=== PATIENT | female | born 1990 | race Caucasian/White ===

== ENCOUNTER 2022-01-13 21:43 | Emergency (ER) | payer SELFPAY ==
[~2022-01-13 21:43] MED LIST: DEPAKOTE250 MG PO; LAMICTAL100 MG PO
== END 2022-01-13 22:10 | disposition left against medical advice (07) | DRG 951 ==
LOC: ED 21:43 → LWOBS 22:10
DX: Z53.21 Procedure and treatment not carried out due to patient leaving prior to being seen by health care provider (principal)